=== PATIENT | female | born 1955 | race Caucasian/White ===

== ENCOUNTER 2021-07-24 19:48 | Emergency (ER) | payer BC ==
[2021-07-24] MEDS ORDERED: NA CHLORIDE 0.9% 500 ML ONE (20:42)
[2021-07-24 20:48] LABS: Absolute Lymphocytes (CBC) 1.6 K/uL (0.7-4.9); Basophils % 0.5 % (0-1.3); Lymphocytes % 15.4 % (15.3-44.8); MPV 8.3 fL (7.6-11.3)
[2021-07-24 20:49] LABS: Protime INR 1.06
[2021-07-24 21:06] LABS: ALT/SGPT 20 U/L (12-78); AST/SGOT 12 U/L (15-37); Albumin 3.3 g/dL (3.4-5.0); Alkaline Phosphatase 86 U/L (45-117); BUN Blood Urea Nitrogen 19 mg/dL (7-18); Bicarbonate 26 mmol/L (21-32); Bilirubin Direct < 0.1 mg/dL (0-0.2); Bilirubin Total 0.3 mg/dL (0.2-1.0); Glucose Level 97 mg/dL (74-106); NT PRO-BNP 97 pg/mL (<125); Potassium 3.3 mmol/L (3.5-5.1); Protein, Total 7.3 g/dL (6.4-8.2); Sodium Level 142 mmol/L (136-145); Troponin (Emerg Dept Use Only) < 0.02 ng/mL (0.0-0.045)
--- NOTE | 2021-07-24 21:32 | RAD REPORT ---
EXAM DESCRIPTION: CTAbdomen Pelvis W Contrast - 07/24/2021 9:21 pm CLINICAL HISTORY: ABD PAIN COMPARISON: No comparisons TECHNIQUE: CT of the abdomen and pelvis was performed. All CT scans are performed using dose optimization technique as appropriate and may include automated exposure control or mA/KV adjustment according to patient size. FINDINGS: Lower chest: Moderate hiatal hernia. Micro nodularity is present in the right lower lobe. Liver: No acute abnormality or suspicious lesions. Biliary: No biliary ductal dilatation. Stomach: No significant focal abnormality. Duodenum: No significant focal abnormality. Pancreas: No significant abnormality. Spleen: No significant abnormality. Adrenal: No suspicious lesions. Kidney/ureter: No hydronephrosis. No renal calculi. Too small to characterize and/or benign appearing renal lesions are noted. Retroperitoneum: No retroperitoneal adenopathy. Vascular: Mild atherosclerosis. No aneurysm. Bowel: Moderate circumferential colonic wall thickening and stranding is present at the splenic flexu re. Diverticulosis without diverticulitis.. Peritoneum: No ascites or free air. Bladder: Grossly unremarkable. Reproductive: No adnexal masses. Bones: No acute fracture. Other: n/a IMPRESSION: Colitis at the splenic flexure. The differential includes infectious and inflammatory et iologies. This is also a common distribution for ischemic colitis. Micronodularity in the right lower lobe may represent mild aspiration pneumonitis. It may be of littl e clinical significance.
--- NOTE | 2021-07-24 22:50 | ER ---
Nurse's Notes [facility] Name: Sarahy Gilliland Age: 66 yrs Sex: Female : 1955 Arrival Date: 07/24/2021 Time: 19:51 Bed 20 Private MD: Diagnosis: Infectious gastroenteritis and colitis, unspecified Presentation: 07/24 20:05 Chief complaint: Patient states: bright red blood that was 'jelled' and mixed with vg1 stool; noticed blood and diarrhea yesterday. Denies NV. States about 20 episodes of diarrhea since last night. Coronavirus screen: Vaccine status: Patient reports receiving the 2nd dose of the covid vaccine. Client denies travel out of the [place] in the last 14 days. Ebola Screen: Patient negative for fever greater than or equal to 101.5 degrees Fahrenheit, and additional compatible Ebola Virus Disease symptoms. Initial Sepsis Screen: Does the patient meet any 2 criteria? HR > 90 bpm. Does the patient have a suspected source of infection?. Risk Assessment: Do you want to hurt yourself or someone else? Patient reports no desire to harm self or others. Onset of symptoms was July 23, 2021. 20:05 Method Of Arrival: Ambulatory vg1 20:05 Acuity: JONI 3 vg1 Triage Assessment: 20:10 General: Appears in no apparent distress. uncomfortable, Behavior is calm, cooperative. vg1 Pain: Complains of pain in suprapubic area Pain currently is 9 out of 10 on a pain scale. Pain began 1 day ago. GI: Abdomen is round obese, Stools are reported to be diarrhea. Reports diarrhea. Historical: - Allergies: 20:08 No Known Allergies; vg1 - Home Meds: 20:08 aspirin 81 mg Oral chew [Active]; metoprolol tartrate 25 mg Oral tab [Active]; Nexium vg1 Oral [Active]; valsartan-hydrochlorothiazide 320-25 mg Oral tab [Active]; ezetimibe-simvastatin Oral [Active]; topiramate Oral [Active]; - PMHx: 20:08 GERD; Hypertension; Myocardial infarction; Sleep Apnea; vg1 - PSHx: 20:08 Appendectomy; Tubal ligation; vg1 20:10 Heart Cath; vg1 - Immunization history:: Client reports receiving the 2nd dose of the Covid vaccine. - Social history:: Smoking status: Patient/guardian denies using tobacco, the patient reports quitting approximately 30 years ago. Screenin/17 00:17 Abuse screen: Denies threats or abuse. Denies injuries from another. Nutritional sm5 screening: No deficits noted. Tuberculosis screening: No symptoms or risk factors identified. Fall Risk None identified. Total Kidd Fall Scale indicates No Risk (0-24 pts). Assessment: 07/24 22:15 General: Appears in no apparent distress. Behavior is calm, cooperative. Neuro: No sm5 deficits noted. Level of Consciousness is awake, alert, Oriented to person, place, time, situation. Cardiovascular: No deficits noted. Capillary refill < 3 seconds Patient's skin is warm and dry. Respiratory: No deficits noted. Airway is patent Trachea midline Respiratory effort is even, unlabored. GI: Abdomen is non-distended, Reports diarrhea, bloody stool. 07/25 00:20 Reassessment: No changes from previously documented assessment. sm5 Vital Signs: 07/24 20:05 BP 100 / 61; Pulse 105; Resp 16; Temp 97.5; Pulse Ox 96% ; Weight 92.08 kg; Height 5 vg1 ft. 6 in. (167.64 cm); Pain 5/10; 21:00 BP 107 / 63; Pulse 90; Resp 20; Pulse Ox 97% ; sm5 22:17 BP 103 / 52; Pulse 77; Resp 15; Pulse Ox 100% ; sm5 23:00 BP 104 / 51; Pulse 79; Resp 18; Pulse Ox 100% on R/A; sm5 07/25 00:00 BP 116 / 50; Pulse 80; Resp 19; Pulse Ox 100% on R/A; sm5 07/24 20:05 Body Mass Index 32.76 (92.08 kg, 167.64 cm) vg1 [place] Coma Score: 07/24 22:17 Eye Response: spontaneous(4). Verbal Response: oriented(5). Motor Response: obeys sm5 commands(6). Total: 15. ED Course: 19:51 Patient arrived in ED. bp1 20:08 Triage completed. vg1 20:10 Arm band placed on. vg1 20:14 Paola Rajan RN is Primary Nurse. sm5 20:16 Antony Steve MD is Attending Physician. sp3 20:42 Basic Metabolic Panel Sent. sm5 20:42 CBC with Diff Sent. sm5 20:42 LFT's Sent. sm5 20:42 Magnesium Sent. sm5 20:42 NT PRO-BNP Sent. sm5 20:42 PT-INR Sent. sm5 20:42 Troponin (emerg Dept Use Only) Sent. sm5 20:42 Basic Metabolic Panel Sent. sm5 20:43 Inserted saline lock: 20 gauge in right antecubital area, using aseptic technique. sm5 Blood collected. 21:23 CT Abd/Pelvis - IV Contrast Only In Process Unspecified. EDMS 07/25 00:18 Patient has correct armband on for positive identification. Bed in low position. Call sm5 light in reach. Side rails up X2. 00:18 No provider procedures requiring assistance completed. IV discontinued, intact, sm5 bleeding controlled, No redness/swelling at site. Pressure dressing applied. Administered Medications: 07/24 20:45 Drug: NS 0.9% 500 ml Route: IV; Rate: bolus; Site: right antecubital; 5 23:00 Drug: Cipro (ciprofloxacin) 400 mg Volume: 200 ml; Route: IVPB; Infused Over: 60 mins; sm5 Site: right forearm; 07/25 00:17 Follow up: Response: No adverse reaction; IV Status: Completed infusion; IV Intake: sm5 200ml 07/24 23:16 CANCELLED (out of stock): Flagyl (metroNIDAZOLE) 500 mg 100 ml IVPB at 200 ml/hr once sm5 over 30 mins 23:20 Drug: Flagyl (metroNIDAZOLE) 500 mg Route: PO; sm5 07/25 00:17 Follow up: Response: No adverse reaction sm5 Intake: 00:17 IV: 200ml; Total: 200ml. sm5 Outcome: 07/24 22:50 Discharge ordered by . sp3 07/25 00:18 Discharged to home ambulatory, with family. sm5 Condition: good Discharge instructions given to patient, family, Instructed on discharge instructions, follow up and referral plans. no drinking with medication, medication usage, Demonstrated understanding of instructions, follow-up care, medications, Prescriptions given X 2. 00:21 Patient left the ED. 5 Signatures: Dispatcher [employer] EDKS Zara Matias, RN RN Calista Elliott Setul, MD MD sp3 Paola Rajan, RN RN sm5
--- NOTE | 2021-07-24 22:50 | EDPHYS ---
Physician Documentation [facility] Name: Sarahy Gilliland Age: 66 yrs Sex: Female : 1955 Arrival Date: 07/24/2021 Time: 19:51 Bed 20 Private MD: ED Physician Antony Steve HPI: 07/24 21:28 This 66 yrs old Female presents to ER via Ambulatory with complaints of Diarrhea, sp3 Bloody Stools. 21:28 66-year-old female with history of hypertension, GERD, prior [place] who presents to the ED sp3 with chief complaint abdominal pain, bloody diarrhea for approximately 36 hours with over 20 episodes. Patient states that her last episode was jellylike with candi blood noted. Patient states that prior to her symptoms starting she has had shrimp and also later that day eggs. All of her symptoms were sudden onset. Patient denies fever, headache, neck pain, chest pain, shortness of breath, extremity pain, decrease in urine output, bleeding from any other sites, travel history, known sick contacts including COVID-19, rash, or any other ROS at this time. Patient had a video consultation with her PCP Dr. Neri who referred her to the ED for evaluation.. Historical: - Allergies: 20:08 No Known Allergies; vg1 - Home Meds: 20:08 aspirin 81 mg Oral chew [Active]; metoprolol tartrate 25 mg Oral tab [Active]; Nexium vg1 Oral [Active]; valsartan-hydrochlorothiazide 320-25 mg Oral tab [Active]; ezetimibe-simvastatin Oral [Active]; topiramate Oral [Active]; - PMHx: 20:08 GERD; Hypertension; Myocardial infarction; Sleep Apnea; vg1 - PSHx: 20:08 Appendectomy; Tubal ligation; vg1 20:10 Heart Cath; vg1 - Immunization history:: Client reports receiving the 2nd dose of the Covid vaccine. - Social history:: Smoking status: Patient/guardian denies using tobacco, the patient reports quitting approximately 30 years ago. ROS: 21:30 Constitutional: Negative for fever, chills, and weight loss, Eyes: Negative for injury, sp3 pain, redness, and discharge, ENT: Negative for injury, pain, and discharge, Neck: Negative for injury, pain, and swelling, Cardiovascular: Negative for chest pain, palpitations, and edema, Respiratory: Negative for shortness of breath, cough, wheezing, and pleuritic chest pain, Back: Negative for injury and pain, MS/Extremity: Negative for injury and deformity, Skin: Negative for injury, rash, and discoloration, Neuro: Negative for headache, weakness, numbness, tingling, and seizure, Psych: Negative for depression, anxiety, suicide ideation, homicidal ideation, and hallucinations, Allergy/Immunology: Negative for hives, rash, and allergies, Endocrine: Negative for neck swelling, polydipsia, polyuria, polyphagia, and marked weight changes. 21:30 All other systems are negative. Exam: 21:30 Constitutional: This is a well developed, well nourished patient who is awake, alert, sp3 and in no acute distress. Head/Face: Normocephalic, atraumatic. Eyes: Pupils equal round and reactive to light, extra-ocular motions intact. Lids and lashes normal. Conjunctiva and sclera are non-icteric and not injected. Cornea within normal limits. Periorbital areas with no swelling, redness, or edema. ENT: Nares patent. No nasal discharge, no septal abnormalities noted. External auditory canals are clear. Oropharynx with no redness, swelling, or masses, exudates, or evidence of obstruction, uvula midline. Mucous membranes moist. Neck: Trachea midline, no thyromegaly or masses palpated, and no cervical lymphadenopathy. Supple, full range of motion without nuchal rigidity, or vertebral point tenderness. No Meningismus. Chest/axilla: Normal chest wall appearance and motion. Nontender with no deformity. No lesions are appreciated. Cardiovascular: Regular rate and rhythm with a normal S1 and S2. No gallops, murmurs, or rubs. Normal PMI, no JVD. No pulse deficits. Respiratory: Lungs have equal breath sounds bilaterally, clear to auscultation and percussion. No rales, rhonchi or wheezes noted. No increased work of breathing, no retractions or nasal flaring. Back: No spinal tenderness. No costovertebral tenderness. Full range of motion. Skin: Warm, dry with normal turgor. Normal color with no rashes, no lesions, and no evidence of cellulitis. MS/ Extremity: Pulses equal, no cyanosis. Neurovascular intact. Full, normal range of motion. Neuro: Awake and alert, GCS 15, oriented to person, place, time, and situation. Cranial nerves II-XII grossly intact. Motor strength 5/5 in all extremities. Sensory grossly intact. Cerebellar exam normal. Normal gait. Psych: Awake, alert, with orientation to person, place and time. Behavior, mood, and affect are within normal limits. 21:30 Abdomen/GI: Patient has suprapubic pain on palpation without evidence of peritonitis. There is no rebound or guarding. Bowel sounds are hyperactive. No upper abdominal tenderness noted. Due to body habitus, pulsatile mass was not able to be ascertained.. Vital Signs: 20:05 BP 100 / 61; Pulse 105; Resp 16; Temp 97.5; Pulse Ox 96% ; Weight 92.08 kg; Height 5 vg1 ft. 6 in. (167.64 cm); Pain 5/10; 21:00 BP 107 / 63; Pulse 90; Resp 20; Pulse Ox 97% ; sm5 22:17 BP 103 / 52; Pulse 77; Resp 15; Pulse Ox 100% ; sm5 23:00 BP 104 / 51; Pulse 79; Resp 18; Pulse Ox 100% on R/A; sm5 12 00:00 BP 116 / 50; Pulse 80; Resp 19; Pulse Ox 100% on R/A; sm5 07/24 20:05 Body Mass Index 32.76 (92.08 kg, 167.64 cm) vg1 [place] Coma Score: 07/24 22:17 Eye Response: spontaneous(4). Verbal Response: oriented(5). Motor Response: obeys sm5 commands(6). Total: 15. MDM: 20:20 Patient medically screened. sp3 21:31 Data reviewed: vital signs, nurses notes. ED course: 66-year-old female with likely sp3 food related illness causing bloody diarrhea and mild dehydration. Will obtain CT scan of the abdomen, laboratory values and administer IV fluids. Differential diagnosis includes infectious diarrhea, infectious colitis, diverticulitis, other GI bleed, bowel ischemia, or other inflammatory process. Disposition will be based on work-up with possibility of admission. Clinically patient is stable and in no acute distress. . 22:48 ED course: Patient with inflammatory and likely infectious colitis from the splenic sp3 flexure distal. Laboratory values show no significant abnormality. Discussed with Dr. Neri her PCP and we will administer Cipro and Flagyl IV in the ED and discharge patient on 10 days of p.o. medications. Also a low fiber diet and follow-up with Dr. Neri in the office.. 07/24 20:20 Order name: Basic Metabolic Panel [facility] 07/24 20:20 Order name: CBC with Diff; Complete Time: 22:33 [facility] 07/24 22:36 Interpretation: WBC 10.20; RBC 4.90. [facility] 07/24 20:20 Order name: LFT's; Complete Time: 22:33 [facility] 07/24 20:20 Order name: Magnesium; Complete Time: 22:33 [facility] 07/24 20:20 Order name: NT PRO-BNP; Complete Time: 22:33 [facility] 07/24 20:20 Order name: PT-INR; Complete Time: 22:33 [facility] 07/24 20:20 Order name: Troponin (emerg Dept Use Only); Complete Time: 22:33 [facility] 07/24 20:20 Order name: EKG; Complete Time: 20:21 [facility] 07/24 20:20 Order name: CT Abd/Pelvis - IV Contrast Only; Complete Time: 22:33 [facility] 07/24 20:20 Order name: Basic Metabolic Panel; Complete Time: 22:33 [facility] 07/24 20:20 Order name: Cardiac monitoring; Complete Time: 20:42 [facility] 07/24 20:20 Order name: EKG - Nurse/Tech; Complete Time: 20:45 [facility] 07/24 20:20 Order name: IV Saline Lock; Complete Time: 20:42 3 07/24 20:20 Order name: Labs collected and sent; Complete Time: 20:42 [facility] 07/24 20:20 Order name: O2 Per Protocol; Complete Time: 20:42 [facility] 07/24 20:20 Order name: O2 Sat Monitoring; Complete Time: 20:42 [facility] 07/24 20:20 Order name: NPO; Complete Time: 20:42 sp3 Administered Medications: 20:45 Drug: NS 0.9% 500 ml Route: IV; Rate: bolus; Site: right antecubital; 5 23:00 Drug: Cipro (ciprofloxacin) 400 mg Volume: 200 ml; Route: IVPB; Infused Over: 60 mins; sm5 Site: right forearm; 07/25 00:17 Follow up: Response: No adverse reaction; IV Status: Completed infusion; IV Intake: sm5 200ml 07/24 23:16 CANCELLED (out of stock): Flagyl (metroNIDAZOLE) 500 mg 100 ml IVPB at 200 ml/hr once sm5 over 30 mins 23:20 Drug: Flagyl (metroNIDAZOLE) 500 mg Route: PO; sm5 07/25 00:17 Follow up: Response: No adverse reaction sm5 Disposition Summary: 07/24/21 22:50 Discharge Ordered Location: Home sp3 Condition: Stable sp3 Diagnosis - Infectious gastroenteritis and colitis, unspecified sp3 Followup: sp3 - With: Private Physician - When: 2 - 3 days - Reason: Re-evaluation by your physician Discharge Instructions: - Discharge Summary Sheet sp3 - Diarrhea, Adult sp3 Forms: - Medication Reconciliation Form sp3 - Thank You Letter sp3 - Antibiotic Education sp3 - Prescription Opioid Use sp3 Prescriptions: - Cipro 500 mg Oral Tablet - take 1 tablet by ORAL route every 12 hours for 10 days; 20 tablet; Refills: 0, sp3 Product Selection Permitted - Flagyl 500 mg Oral Tablet - take 1 tablet by ORAL route every 8 hours for 10 days; 30 tablet; Refills: 0, sp3 Product Selection Permitted Signatures: Dispatcher [employer] EDMS Zara Matias RN RN vg1 Antony Steve MD MD sp3 Paola Rajan RN RN sm5 Corrections: (The following items were deleted from the chart) 07/24 23:16 22:49 Flagyl (metroNIDAZOLE) 500 mg 100 ml IVPB at 200 ml/hr once over 30 mins ordered. sm5 sp3
[2021-07-24] MEDS ORDERED: metroNIDAZOLE 500 MG TABLET ONE (22:58)
[2021-07-24] MEDS ORDERED: CIPROFLOXACIN 400mg IV 400 MG/200 ML BAG IV ONE (22:58)
[2021-07-25 00:33] VITALS: TEMP 97.5
[2021-07-25 00:36] VITALS: O2SAT 100
[2021-07-25 00:39] VITALS: BP 116/50
--- NOTE | 2021-07-26 17:02 | EKG ---
Test Date: 2021-07-24 Test Time: 20:45:37 Internet Site Designer: JOHN MEASUREMENT RESULTS: Intervals: Rate: 93 ID: [id number] QRSD: 74 QT: 356 QTc: 442 [place]: P: 44 ID: [id number] QRS: 27 T: 64 INTERPRETIVE STATEMENTS: Normal sinus rhythm Cannot rule out Inferior infarct, age undetermined Cannot rule out Anterior infarct, age undetermined Abnormal ECG No previous ECG available for comparison Electronically Signed On 07-26-21 17:00:08 [employer] by Augusto Bates
== END 2021-07-25 00:21 | disposition home or self-care (01) ==
LOC: ER 19:48
DX: K52.9 Noninfective gastroenteritis and colitis, unspecified (principal); I10 Essential (primary) hypertension; K21.9 Gastro-esophageal reflux disease without esophagitis; G47.30 Sleep apnea, unspecified; I25.2 Old myocardial infarction
CPT/HCPCS: 96365; 93005; 85025; 80048; 36415; 83735; 85610; 80076; 84484; 83880; 74177; 99284; Q9967; J7040; J0744

== ENCOUNTER 2022-01-25 15:31 | Inpatient (IN) | payer BC, OTHER ==
[2022-01-25 16:19] LABS: Absolute Lymphocytes (CBC) 1.4 K/uL (0.7-4.9); Hematocrit 43.2 % (36.0-45.0); MCV 80.6 fL (80-100); MPV 8.3 fL (7.6-11.3); RBC Red Blood Cell Count 5.36 M/uL (3.86-4.86)
[2022-01-25 16:22] LABS: Protime INR 0.97
--- NOTE | 2022-01-25 16:40 | RAD REPORT ---
EXAM DESCRIPTION: RAD - Chest Single View - 01/25/2022 4:35 pm CLINICAL HISTORY: CHEST PAIN COMPARISON: CHEST PA AND LAT 2 VIEW dated 10/23/2015; CHEST PA AND LAT 2 VIEW dated 10/19/2015; Abdome n Pelvis W Contrast dated 07/24/2021 FINDINGS: Lines: None. Lungs: No evidence of edema or pneumonia. Pleural: No significant pleural effusions or pneumothorax. Cardiac: The heart size is within normal limits. Bones: No acute fractures. Other: Small hiatal hernia IMPRESSION: No acute cardiopulmonary disease.
[2022-01-25 16:41] LABS: ALT/SGPT 21 U/L (12-78); AST/SGOT 20 U/L (15-37); Albumin 3.4 g/dL (3.4-5.0); Alkaline Phosphatase 93 U/L (45-117); BUN Blood Urea Nitrogen 17 mg/dL (7-18); Bicarbonate 25 mmol/L (21-32); Bilirubin Direct < 0.1 mg/dL (0-0.2); Bilirubin Total 0.5 mg/dL (0.2-1.0); Glomerular Filtration Rate 64 ml/min (=/>90); Glucose Level 99 mg/dL (74-106); Magnesium 1.8 mg/dL (1.8-2.4); NT PRO-BNP 45 pg/mL (<125); Potassium 3.9 mmol/L (3.5-5.1); Sodium Level 139 mmol/L (136-145); Troponin High Sensitivity 3.9 pg/mL (<58.9)
--- NOTE | 2022-01-25 16:51 | EDPHYS ---
Physician Documentation [facility] Name: Sarahy Gilliland Age: 66 yrs Sex: Female : 1955 Arrival Date: 01/25/2022 Time: 15:33 Bed 7 Private MD: Debra Neri C ED Physician Sherry Mandujano HPI: 01/25 16:10 This 66 yrs old Female presents to ER via Wheelchair with complaints of Chest Pain, en Dizziness. 16:10 66 yo F with h/o chiari malformation, CAD, HTN presents to ED with 4d of intermittent en substernal CP radiating to throat and jaw associated with nausea, diaphoresis and lightheadedness. Pain is worse with exertion. Also reports some left sided ataxia when she walks without numbness, tingling weakness, AMS, trouble with speech. CP takes her breath away otherwise no SOB, cough, orthopnea. Historical: - Allergies: 15:42 Plavix; ll1 - PMHx: 15:42 Hypertension; GERD; Myocardial infarction; Sleep Apnea; pre diabetes; ll1 - PSHx: 15:42 Appendectomy; heart cath; tubal ligation; ll1 - Immunization history:: Client reports receiving the 2nd dose of the Covid vaccine. - Social history:: Smoking status: Patient/guardian denies using tobacco. ROS: 16:10 Constitutional: Negative for fever, chills, and weight loss. en 16:10 Constitutional: Negative for body aches, chills, fatigue, fever. 16:10 Eyes: Negative for blurry vision. 16:10 ENT: Negative for tinnitus. 16:10 Cardiovascular: Positive for chest pain. 16:10 Cardiovascular: Negative for edema, orthopnea, palpitations, paroxysmal nocturnal dyspnea. 16:10 Respiratory: Negative for cough, hemoptysis, orthopnea, pleurisy, shortness of breath. 16:10 Abdomen/GI: Positive for nausea and vomiting, Negative for abdominal pain, diarrhea. 16:10 : Negative for urinary symptoms. 16:10 Skin: Positive for diaphoresis. 16:10 Neuro: Positive for dizziness. 16:10 All other systems are negative. Exam: 16:10 Constitutional: This is a well developed, well nourished patient who is awake, alert, en and in no acute distress. 16:10 Constitutional: The patient appears in no acute distress, alert. 16:10 Eyes: Pupils: equal, round, and reactive to light and accomodation, Extraocular movements: intact throughout, Conjunctiva: normal, no exudate, no injection. 16:10 ENT: Mouth: Lips: moist, Oral mucosa: pink and intact, moist, Posterior pharynx: Airway: patent. 16:10 Neck: ROM/movement: is normal. 16:10 Cardiovascular: Rate: normal, Rhythm: regular, Pulses: no pulse deficits are appreciated, Heart sounds: normal, no murmur, no rub, no gallop. 16:10 Respiratory: the patient does not display signs of respiratory distress, Respirations: normal, Breath sounds: are clear throughout, no rales, rhonchi, no stridor, no wheezing. 16:10 Abdomen/GI: Inspection: abdomen appears normal, Bowel sounds: normal, in all quadrants, Palpation: abdomen is soft and non-tender, in all quadrants. 16:10 Back: CVA tenderness, is absent. 16:10 Skin: 16:10 Neuro: Orientation: appropriate for stated age, to person, place \\T\\ time. Mentation: appropriate for stated age, Cranial nerves: CN II- XII are normal as tested, Gait: is steady, Deep tendon reflexes are 16:10 Psych: Behavior/mood is pleasant, cooperative, Affect is calm. Vital Signs: 15:43 BP 153 / 78; Pulse 69; Resp 18; Temp 97.8; Pulse Ox 100% on R/A; Weight 92.53 kg; ll1 Height 5 ft. 6 in. (167.64 cm); Pain 4/10; 16:44 BP 146 / 65; Pulse 58; Resp 18; Pulse Ox 98% on R/A; greer 15:43 Body Mass Index 32.93 (92.53 kg, 167.64 cm) ll1 MDM: 15:52 Patient medically screened. en 16:10 Differential diagnosis: ACS, TIA, unstable angina. Data reviewed: vital signs, nurses en notes, EKG, radiologic studies, EKG NSR with flat T-waves no STEMI, and as a result, I will. 16:46 ED course: . en 16:48 ED course: reviewed imaging and labs. Will admit for exertional chest pain. Accepted by en Dr Neri. Will consult Cards. 01/25 16:03 Order name: Basic Metabolic Panel; Complete Time: 16:43 01/25 16:03 Order name: CBC with Diff; Complete Time: 16:43 01/25 16:03 Order name: D-Dimer; Complete Time: 16:43 01/25 16:03 Order name: LFT's; Complete Time: 16:43 greer 01/25 16:03 Order name: Magnesium; Complete Time: 16:43 01/25 16:03 Order name: NT PRO-BNP; Complete Time: 16:43 01/25 16:03 Order name: PT-INR; Complete Time: 16:43 01/25 16:03 Order name: Troponin HS; Complete Time: 16:43 greer 01/25 16:03 Order name: XRAY Chest (1 view); Complete Time: 16:43 greer 01/25 16:10 Order name: CT Head Brain wo Cont; Complete Time: 17:12 en 01/25 16:39 Order name: COVID-19 SARS RT PCR (Document "Date of Onset" if Symptomatic) 01/25 16:51 Order name: COVID-19 SARS RT PCR (Document "Date of Onset" if Symptomatic) 01/25 15:57 Order name: EKG; Complete Time: 15:57 01/25 15:57 Order name: EKG - Nurse/Tech; Complete Time: 15:57 01/25 16:03 Order name: Cardiac monitoring; Complete Time: 16:08 greer 01/25 16:03 Order name: IV Saline Lock; Complete Time: 16:08 greer 01/25 16:03 Order name: Labs collected and sent; Complete Time: 16:08 greer 01/25 16:03 Order name: O2 Per Protocol; Complete Time: 16:08 greer 01/25 16:03 Order name: O2 Sat Monitoring; Complete Time: 16:08 greer Administered Medications: 16:54 Drug: Zofran (Ondansetron) 4 mg Route: IVP; Site: left antecubital; jg9 16:55 Follow up: Response: No adverse reaction jg9 18:25 Drug: Tylenol 650 mg Route: PO; ss 18:26 Follow up: Response: No adverse reaction ss Disposition Summary: 01/25/22 16:50 Hospitalization Ordered Provider: Debra Neri Location: Telemetry/MedSurg (Inpatient) en Condition: Stable en Problem: new en Symptoms: are unchanged en Bed/Room Type: Standard en Hospitalization Status: Observation(01/25/22 17:13) en Room Assignment: 220(01/25/22 18:00) dw Diagnosis - Exertional chest pain en Forms: - Medication Reconciliation Form en - SBAR form en Addendum: 02/01/2022 18:09 Co-signature as Attending Physician, Sherry toledo a2 Signatures: Dispatcher [employer] [facility] Kary Nunez RN Samia Simons RN RN ss Alzahri, Mohammad, MD MD ma2 Khanh No RN RN ll1 Gina Orellana RN RN jg9 Genet Mendez RN RN Swati Mast PA PA en Corrections: (The following items were deleted from the chart) 01/25 16:15 16:00 Abdomen Pelvis W Con+CT.RAD.BRZ ordered. [facility] 17:13 16:50 Inpatient Admission en en 18:00 16:50 en dw
--- NOTE | 2022-01-25 16:51 | ER ---
Nurse's Notes [facility] Name: Sarahy Gilliland Age: 66 yrs Sex: Female : 1955 Arrival Date: 01/25/2022 Time: 15:33 Bed 7 Private MD: Debra Neri C Diagnosis: Exertional chest pain Presentation: 01/25 15:43 Chief complaint: Patient states: Dizziness and nausea started Wednesday. CP on ll1 . Still feels tired, weak, dizzy with NOYOLA. "Tight to breathe" off/on. No known fever. Home covid test negative. Coronavirus screen: Vaccine status: Patient reports receiving the 2nd dose of the covid vaccine. Client denies travel out of the [place] in the last 14 days. difficulty breathing, fatigue, headache, nausea, shortness of breath, vomiting. Client presents with at least one sign or symptom that may indicate coronavirus-19. Standard/surgical mask placed on the client. Ebola Screen: Patient denies travel to an Ebola-affected area in the 21 days before illness onset. Initial Sepsis Screen: Does the patient meet any 2 criteria? No. Patient's initial sepsis screen is negative. Does the patient have a suspected source of infection? No. Patient's initial sepsis screen is negative. Risk Assessment: Do you want to hurt yourself or someone else? Patient reports no desire to harm self or others. Onset of symptoms was January 21, 2022. 15:43 Method Of Arrival: Wheelchair ll1 15:43 Acuity: JONI 3 ll1 Triage Assessment: 15:46 General: Appears uncomfortable, ill, Behavior is cooperative, appropriate for age. ll1 Pain: Complains of pain in head Pain currently is 4 out of 10 on a pain scale. Quality of pain is described as aching. Neuro: Reports dizziness, headache weakness. Cardiovascular: Reports chest pain, fatigue, lightheadedness, nausea, shortness of breath. Respiratory: Reports shortness of breath labored breathing. GI: Reports nausea, vomiting. Historical: - Allergies: 15:42 Plavix; ll1 - PMHx: 15:42 Hypertension; GERD; Myocardial infarction; Sleep Apnea; pre diabetes; ll1 - PSHx: 15:42 Appendectomy; heart cath; tubal ligation; ll1 - Immunization history:: Client reports receiving the 2nd dose of the Covid vaccine. - Social history:: Smoking status: Patient/guardian denies using tobacco. Screenin:43 Abuse screen: Denies threats or abuse. Denies injuries from another. Nutritional noyola screening: No deficits noted. Tuberculosis screening: No symptoms or risk factors identified. Fall Risk None identified. Assessment: 15:43 Pain: Complains of pain in chest Pain does not radiate. Pain began gradually. Neuro: noyola Level of Consciousness is awake, alert, obeys commands, Oriented to person, place, time, situation, Reports dizziness, weakness. Cardiovascular: Reports chest pain, lightheadedness. Vital Signs: 15:43 BP 153 / 78; Pulse 69; Resp 18; Temp 97.8; Pulse Ox 100% on R/A; Weight 92.53 kg; ll1 Height 5 ft. 6 in. (167.64 cm); Pain 4/10; 16:44 BP 146 / 65; Pulse 58; Resp 18; Pulse Ox 98% on R/A; noyola 15:43 Body Mass Index 32.93 (92.53 kg, 167.64 cm) ll1 ED Course: 15:33 Patient arrived in ED. mr 15:33 Debra Neri MD is Private Physician. mr 15:39 Swati Minaya PA is PHCP. en 15:39 Sherry Mandujano MD is Attending Physician. en 15:42 Arm band placed on Patient placed in an exam room, on a stretcher. ll1 15:43 Genet Mendez, RN is Primary Nurse. noyola 15:43 Patient has correct armband on for positive identification. Bed in low position. noyola community health nurse supervisor on. Pulse ox on. NIBP on. 15:43 No provider procedures requiring assistance completed. Patient maintains SpO2 noyola saturation greater than 95% on room air. 15:46 Triage completed. ll1 16:12 Inserted saline lock: 20 gauge in left forearm, using aseptic technique. noyola 16:37 XRAY Chest (1 view) In Process Unspecified. EDMS 16:49 Debra Neri MD is Hospitalizing Provider. en 16:59 CT Head Brain wo Cont In Process Unspecified. EDMS 18:54 Patient admitted, IV remains in place. noyola Administered Medications: 16:54 Drug: Zofran (Ondansetron) 4 mg Route: IVP; Site: left antecubital; j9 16:55 Follow up: Response: No adverse reaction 9 18:25 Drug: Tylenol 650 mg Route: PO; ss 18:26 Follow up: Response: No adverse reaction Medication: 15:43 VIS not applicable for this client. noyola Outcome: 16:50 Decision to Hospitalize by Provider. en 18:54 Admitted to Med/surg accompanied by tech, room 220. noyola 18:54 Condition: good 18:54 Instructed on the need for admit. 18:55 Patient left the ED. noyola Signatures: Dispatcher [employer] EDNV DonnieAnjali Shelby, RN Khanh Orozco RN RN Gina Blanc RN RN [id number] Genet Mendez RN RN ha [place]kirk, Elizabeth, PA PA en
[2022-01-25] MEDS ORDERED: ONDANSETRON 4 MG/2 ML VIAL ONE (16:56)
--- NOTE | 2022-01-25 17:07 | RAD REPORT ---
EXAM DESCRIPTION: CT - Head Brain Wo Cont - 01/25/2022 4:58 pm CLINICAL HISTORY: Ataxia, nontraumatic, stroke excluded COMPARISON: Head Brain Wo Cont dated 02/12/2017 TECHNIQUE: All CT scans are performed using dose optimization technique as appropriate and may inclu de automated exposure control or mA/KV adjustment according to patient size. FINDINGS: No intracranial hemorrhage, hydrocephalus or extra-axial fluid collection.No areas of brai n edema or evidence of midline shift. Low-lying cerebellar tonsils. The paranasal sinuses and mastoids are clear. The calvarium is intact. IMPRESSION: No acute intracranial abnormality.
[2022-01-25] MEDS ORDERED: ACETAMINOPHEN 500 MG TAB PO PRN (18:12)
[2022-01-25] MEDS ORDERED: ACETAMINOPHEN 325 MG TABLET ONE (18:33)
[2022-01-25] MEDS: METOPROLOL TAR 25 MG TAB PO SCH (21:00)
[2022-01-25] MEDS ORDERED: TOPIRAMATE 25 MG TAB PO SCH (21:00)
[2022-01-25] MEDS: ONDANSETRON 4 MG/2 ML VIAL IV PRN (21:28)
[2022-01-25] MEDS: EZETIMIBE 10 MG TAB PO SCH (21:30)
[2022-01-25 21:33] VITALS: BMI 32.9
[2022-01-25] MEDS: ENOXAPARIN 40 MG/0.4 ML SQ SCH (21:46)
[2022-01-25] MEDS: ATORVASTATIN 40 MG TAB PO SCH (21:47)
[2022-01-26 03:49] LABS: Absolute Lymphocytes (CBC) 1.8 K/uL (0.7-4.9); Hematocrit 40.6 % (36.0-45.0); Lymphocytes % 19.8 % (15.3-44.8); MCV 79.9 fL (80-100); MPV 8.1 fL (7.6-11.3); RBC Red Blood Cell Count 5.08 M/uL (3.86-4.86)
[2022-01-26 04:25] LABS: Potassium 3.8 mmol/L (3.5-5.1)
[2022-01-26] MEDS: PANTOPRAZOLE 40MG TABLET PO SCH (06:28)
[2022-01-26] MEDS: METOPROLOL TAR 25 MG TAB PO SCH ×2 (08:23→20:20)
[2022-01-26] MEDS: ASPIRIN EC 81 MG TAB PO SCH (08:24)
[2022-01-26] MEDS: VALSARTAN 160 MG TAB PO SCH (08:24)
[2022-01-26] MEDS ORDERED: VALSARTAN 160 MG TAB PO SCH (09:00)
[2022-01-26] MEDS ORDERED: hydroCHLOROthiazide 25 MG TAB PO SCH (09:00)
--- NOTE | 2022-01-26 09:50 | RAD REPORT ---
EXAM DESCRIPTION: MRI - Brain W/Wo Cont - 01/26/2022 9:37 am CLINICAL HISTORY: R/O STROKE, ataxia, dizziness COMPARISON: MRA Head Wo Cont dated 01/26/2022; Head Brain Wo Cont dated 01/25/2022; MRA Neck W/Wo Cont dated 01/26/2022 TECHNIQUE: Sagittal and axial T1-weighted images were obtained. Axial PD/heavily T2-weighted and T2- FLAIR images were obtained along with axial DWI/ADC mapping sequences. Coronal heavily T2 weighted s equence obtained. Axial and coronal post-contrast T1-weighted images were also obtained. A 20 ml Mul tihance contrast following utilized. FINDINGS: No intracranial hemorrhage, mass or acute infarction. There is no edema or shift of midlin e structures. No extra-axial fluid collections. Orellana-matter/white matter junction is preserved. Sign al voids are seen as a normal finding in the major intracranial vessels. No significant atrophy santana es are present. The ventricles are normal in appearance. A punctate focus of nonenhancing T2 signal a bnormality is seen in the posterior right frontal lobe. This is most likely a focus of chronic ischem ic change. Post-contrast images show normal enhancement. No dural thickening. Mastoid air cells and paranasal sinuses are clear. Patient has minimal tonsillar ectopia not believed to be clinically significant. IMPRESSION: No acute or subacute infarction changes. No acute intracranial finding.
--- NOTE | 2022-01-26 10:07 | RAD REPORT ---
EXAM DESCRIPTION: MRI - MRA Head Wo Cont - 01/26/2022 9:37 am CLINICAL HISTORY: Dizziness, weakness, stroke-like symptoms COMPARISON: MRI brain same date, CT head January 25 TECHNIQUE: Axial and coronal 3D [id number] image acquisition was performed. 3D rotational images were generated with source and reconstruction images reviewed. Horizontal and vertical axis rotation al views generated using MIP protocol. FINDINGS: No aneurysm or vascular malformation identified. No named branch occlusion, vasculitis or other significant vascular finding identifiable. No basilar abnormality seen. The left posterior cere bral artery P1 segment is absent. A large posterior communicating artery on the left supplies the lef t posterior cerebral artery. This is a normal anatomic variant. Anterior communicating artery is pres ent. Left anterior cerebral artery A1 segment is small in size. This is also believed to be anatomic variation rather than an asymmetric atherosclerotic process. Distal portions of each internal carotid artery show no significant findings. IMPRESSION: MRA head examination shows no branch occlusion, significant atherosclerotic change or ot her significant finding.
--- NOTE | 2022-01-26 10:09 | RAD REPORT ---
EXAM DESCRIPTION: MRI - MRA Neck W/Wo Cont - 01/26/2022 9:38 am CLINICAL HISTORY: Weakness, dizziness, stroke-like symptoms COMPARISON: MRI brain same date TECHNIQUE: MR angiography of the cervical vasculature performed. Coronal imaging plane acquisition u tilized. A 20 mL MultiHance contrast volume was utilized. Coronal reformatted images were generated a nd reviewed. Vertical axis 3D rotational projections obtained using maximum intensity projection prot ocol. FINDINGS: Aortic arch is 3 vessel configuration with no origins stenosis. Imaged portions of the sub clavian arteries also unremarkable. No basilar artery origins stenosis. The proximal portions of each vertebral artery are tortuous. The codominant vertebral arteries show no atherosclerotic change, dis section or other acute process. Right common carotid artery is tortuous in the proximal portion. The bilateral common carotid and int ernal carotid arteries show no dissection, stenosis or significant vascular finding. IMPRESSION: MRA neck examination shows no significant or suspicious finding.
--- NOTE | 2022-01-26 11:51 | EKG ---
Test Date: 2022-01-25 Test Time: 15:39:09 Student Services Director: MARTÍNEZ MEASUREMENT RESULTS: Intervals: Rate: 62 [place]: 176 QRSD: 80 QT: 412 QTc: 418 [place]: P: 52 [place]: 176 QRS: 25 T: 100 INTERPRETIVE STATEMENTS: Normal sinus rhythm Cannot rule out Anterior infarct, age undetermined Abnormal ECG Compared to ECG 07/24/2021 20:45:37 No significant changes Electronically Signed On 01-26-22 11:50:11 CDT by Augusto Bates
--- NOTE | 2022-01-26 12:14 | CON ---
Date of Consultation: 01/26/2022 Reason For Consultation: Chest pain. History Of Present Illness: Ms. Gilliland is a 66-year-old white woman. She has seen Dr. Sapp in t he past, underwent a left heart catheterization in 2002 with some mild what sounds like distal LAD di sease and had a stress test a couple of years ago that was unremarkable. Comes in with substernal ch est pain radiating to the jaw with some nausea and diaphoresis. Symptoms occurred initially about 3 days ago and then abated. She continues to have some diaphoresis and dizziness upon standing up. Th morning, she had some chest pain with exertion after she walked to the bathroom. Denied any PND, orthopnea, pedal edema, palpitations, or syncope. Denied any fever or chills. Her EKG showed old an terior MN. CT of the head was negative. Chest x-ray was negative. Troponin was unremarkable. The patient continues to have symptoms. Past Medical History: Includes Chiari syndrome, hypertension, gastroesophageal reflux disease, dysli pidemia, CAD status post MN in 2002 with mild coronary artery disease. Allergies: NONE. Review of Systems: Negative. Social History: Negative. Family History: Noncontributory. Medications: At home include valsartan with HCTZ, metoprolol, aspirin, Vytorin, fish oil, and Nexium . Physical Examination: General: Very pleasant lady, in no acute distress now. Vital Signs: Blood pressure is 140/65. HEENT: Negative. Neck: Supple with no bruit. Chest: Clear. Cardiac: Revealed a regular rhythm and rate without any murmurs, gallops, or rubs. Abdomen: Benign. Extremities: Revealed no clubbing, cyanosis, or edema. Diagnostic Data: Listed earlier. Impression And Plan: Symptoms are consistent with unstable angina. There is an echocardiogram pendi ng. She has an MRI as well pending for today. She has seen Dr. Sainz regarding her Chiari syndro me. She has just changed her medication from metoprolol to propranolol. She is also on Celexa. I t hink it would be safest to keep Ms. Gilliland in the hospital for left heart catheterization with selec tive coronary arteriogram to define her coronary anatomy before she goes home. The case was discusse d with Dr. Neri. Her blood pressure and her dyslipidemia are stable. She had Chiari syndrome that i s stable. As listed earlier, she has had a heart catheterization in 2002 with mild coronary artery d isease. We will rule out progression tomorrow. KENNEDY/JOS Voice ID: [id number] Report ID: [id number]
[2022-01-26] MEDS: ONDANSETRON 4 MG/2 ML VIAL IV PRN (13:14)
[2022-01-26] MEDS: ENOXAPARIN 40 MG/0.4 ML SQ SCH (20:19)
[2022-01-26] MEDS: EZETIMIBE 10 MG TAB PO SCH (20:19)
[2022-01-26] MEDS: ATORVASTATIN 40 MG TAB PO SCH (20:19)
[2022-01-27] MEDS: PANTOPRAZOLE 40MG TABLET PO SCH (05:37)
--- NOTE | 2022-01-27 08:50 | ECHO ---
HEIGHT: 5 ft 6 in WEIGHT: 204 lb 0 oz DATE OF STUDY: 01/26/[address]: Augusto Btaes MD 2-DIMENSIONAL: YES M.MODE: YES DOPPLER: YES COLOR FLOW: YES TDS: PORTABLE: YES DEFINITY: BUBBLE STUDY: DIAGNOSIS: CHEST PAIN CARDIAC HISTORY: CATHERIZATION: SURGERY: PROSTHETIC VALVE: PACEMAKER: MEASUREMENTS (cm) DIASTOLIC (NORMALS) SYSTOLIC (NORMALS) IVSd 1.0 (0.6-1.2) LA Diam (1.9-4.0) LVEF 61% LVIDd 4.6 (3.5-5.7) LVIDs 3.1 (2.0-3.5) %FS 33% LVPWd 1.0 (0.6-1.2) Ao Diam 2.7 (2.0-3.7) 2 DIMENSIONAL ASSESSMENT: RIGHT ATRIUM: NORMAL LEFT ATRIUM: NORMAL RIGHT VENTRICLE: NORMAL LEFT VENTRICLE: NORMAL TRICUSPID VALVE: NORMAL MITRAL VALVE: NORMAL PULMONIC VALVE: NORMAL AORTIC VALVE: NORMAL PERICARDIAL EFFUSION: NONE AORTIC ROOT: NORMAL LEFT VENTRICULAR WALL MOTION: NORMAL DOPPLER/COLOR FLOW: MILD AORTIC INSUFFICIENCY COMMENTS: NORMAL LEFT VENTRICULAR EJECTION FRACTION 55-60%. NORMAL WALL MOTION. MILD AORTIC INSUFFICIENCY. TECHNOLOGIST: JOSEFINA ESCOBAR
[2022-01-27] MEDS: ASPIRIN EC 81 MG TAB PO SCH (09:00)
[2022-01-27] MEDS: METOPROLOL TAR 25 MG TAB PO SCH (09:00)
[2022-01-27] MEDS: VALSARTAN 160 MG TAB PO SCH (09:00)
[2022-01-27] MEDS ORDERED: NA CHLORIDE 0.9% 500 ML ONE (10:32)
[2022-01-27] MEDS ORDERED: FENTANYL CITR 100 MCG/2 ML ONE (11:01)
[2022-01-27] MEDS ORDERED: MIDAZOLAM HCL 2 MG/2 ML INJ ONE (11:01)
[2022-01-27] MEDS ORDERED: ATROPINE SULF 1 MG/10 ML SYR IV ONE (11:01)
[2022-01-27] MEDS ORDERED: NA CHLORIDE 0.9% 0 ML ONE (11:01)
[2022-01-27 12:06] VITALS: O2SAT 99
--- NOTE | 2022-01-27 12:06 | OP ---
Date of Procedure: 01/27/2022 Surgeon: Augusto Bates MD Porcelain Enamel Laborer: Ms. Nery Alves. The patient admitted to Dr. Neri on 01/25/2022 with unstable angina. Procedure In Detail: Brought to the cardiac cath rn today on 01/27/2022, prepped and draped in the routine sterile fashion. Given Versed and fentanyl for sedation. A 6-Greek sheath introduced in the right common femoral artery successfully using the Seldinger technique and 10 cc of Xylocaine. Common femo ral artery angiogram was normal. Angio-Seal was used to close the case. Roberth catheter left and r ight were used to cannulate the left main and right main respectively. She had a normal RCA. The le ft main was normal. Circumflex was small, normal, nondominant. LAD was normal proximally. Distally , she has some diffuse plaquing, but no focal stenosis. The patient tolerated the procedure well. T here were no complications. Blood Loss: 5 mL. Postoperative Diagnosis: Minimal coronary artery disease. Plan: Plan is for medical therapy. The patient can go home today after 2 hours of bedrest. She jose l follow up with me and Dr. Neri in the near future. KENNEDY/JOS Voice ID: [id number] Report ID: [id number]
--- NOTE | 2022-01-27 13:03 | HP ---
Date of Admission: 01/26/2022 Chief Complaint: Dizziness, nausea, chest pain. History Of Present Illness: Ms. Gilliland is a 66-year-old very pleasant female patient, who has histo ry of coronary artery disease which never required any intervention, diagnosed in 2002 with some mild disease of distal LAD. 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 Sapp regularly. She had negative stress t est about 2 years ago with her rhythmic gymnastics coach. She was doing fine in her normal usual state of health until this past week on Wednesday. She started to have some dizziness, nausea while she was at work. Next day, she started to have some feeling of chest pain associated with some tightness feeling in her throat and she noted that she had some sweating and short of breath when all the symptoms happene d while she was not doing any activity. Yesterday when she got up just to walk, she felt dizzy, naus eated, short of breath and sweaty and had some chest pain and this was while she was trying to get up to go to the bathroom. She has history of headache and lately her headache medication has been [place] ged because Topamax that she was taking was causing some eye symptoms. She sees Dr. Sainz, neurol ogist for her chronic headache problem. With all these other symptoms, she came into emergency room yesterday and after she was evaluated, she was admitted to the hospital. Allergies: NO KNOWN ALLERGIES. Medications: She takes aspirin 81 mg daily, Nexium 20 mg daily, simvastatin/Zetia 40/10 mg daily, va lsartan/HCTZ 320/25 one tablet daily, Claritin 10 mg daily, metoprolol tartrate 25 mg she takes half a tablet daily, sumatriptan as needed for headache, and some new headache medication recently prescri bed by Dr. Sainz. Review of Systems: Cardiovascular: As mentioned above. SNOWBLOWER MECHANIC: As mentioned above. All other systems reviewed and negative. Past Medical History: Significant for migraine, Arnold-Chiari malformation, impaired fasting glucose , hypertension, hyperlipidemia, gastroesophageal reflux disease, diverticulosis, leukocytosis. Past Surgical History: Tonsillectomy, appendectomy, pilonidal cyst surgery, tubal ligation, D and C, ankle surgery for fracture of left ankle. Family History: Father had coronary artery disease, brother with stroke and coronary artery disease. Social History: Negative for smoking, alcohol use. Occasional use of glass of wine. Immunization History: Her COVID-19 vaccine first dose on October 09, 2020, second dose November 06, 2020, and third dose 06/13/2021. Physical Examination: Vital Signs: Temperature 98, pulse 71, respiratory rate 15, blood pressure 112/52, oxygen saturation 98%. Height 5 feet 6 inches, weight 204 pounds. General: Awake, alert, oriented, not in distress. HEENT: Head atraumatic, normocephalic. Conjunctivae nonerythematous. Sclerae white. Mouth, no thr ush or edema noted. Ears/Nose, no mass, lesion, discharge noted. Neck: Supple. No JVD, lymph nodes, bruit, thyromegaly noted. Lungs: Bilateral good equal air entry. Clear to auscultation. No rhonchi. No rales. Heart: Normal heart sounds, no murmur or gallop. Abdomen: Soft, bowel sounds normal. No guarding, rigidity, tenderness, mass, hepatosplenomegaly, dis tention, or bruit noted. Extremities: No leg edema. No calf tenderness. Skin: No rash, ulcer, cellulitis. Lymphatics: No lymph node enlargement in neck, supraclavicular, infraclavicular region. Neuro: No focal neurological deficit. Chest: Unremarkable. External Genitalia: Deferred. Rectal: Deferred. Laboratory Data: Yesterday; white count 8.7, hemoglobin 14.1, platelets 237. Today; white count 9.1 , hemoglobin 13.5, platelets 277. Yesterday; sodium 139, potassium 3.9, chloride 105, bicarb 25, BUN 17, creatinine 0.98, glucose 99. Liver function tests unremarkable. Troponin first set 3.9, second set 5.3, and third site 5.8. Triglyceride 166, total cholesterol 123, LDL 50, HDL 40. COVID-19 ahmet t negative. Chest x-ray, no acute cardiopulmonary changes. CAT scan of the brain, no acute intracra nial changes. Impression: 1.Coronary artery disease with angina. 2.Migraine headache. 3.Hypertension. 4.Hyperlipidemia. 5.Impaired fasting glucose. 6.Gastroesophageal reflux disease. 7.Diverticulosis. Plan: We will go ahead and admit the patient to hospital for further evaluation and management of th is problem. The patient is appropriate for inpatient and is expected to spend 2 midnights in [facility]. Cardiology consultation was requested and I did discuss details with Dr. Bates. We will get ec ho with Doppler today. We will also get MRI of the brain per stroke protocol to rule out any underly ing stroke type of problem. The patient does have a history of coronary artery disease and she has n ot had any cardiac cath done in the almost last 20 years or so and with her current presenting sympto ms, I did talk to Dr. Bates who is planning to do cardiac cath on her tomorrow. Details and plan o f treatment discussed with the patient. I will see her in the morning for followup. We will continu e her aspirin and Lovenox per order. CLINT/MODL Voice ID: [id number]
[2022-01-27 16:15] VITALS: TEMP 98.6
[2022-01-27 17:57] VITALS: BP 116/64
--- NOTE | 2022-01-28 06:33 | DS ---
Date of Discharge: 01/27/2022 Disposition: Discharged to go home. Physical Examination: HEENT: Unremarkable. Lungs: Clear to auscultation. Heart: Heart sounds normal. Abdomen: Soft, bowel sounds normal. No guarding, rigidity, tenderness, or distention. Extremities: No leg edema. Discharge Medications And Instructions: 1.Continue all prior home medications. 2.Follow up at my office next week. Final Diagnoses: 1.Angina with coronary artery disease. 2.Dizziness. 3.Hypertension. 4.Hyperlipidemia. 5.Impaired fasting glucose. 6.Gastroesophageal reflux disease. 7.Diverticulosis. Hospital Course: This is a 66-year-old female patient who was admitted to the hospital after she pre sented to emergency room with dizziness, nausea and chest pain with day-to-day activity. Please see dictated H and P for more information. After patient was evaluated in the emergency room, she was ad mitted to the hospital. Her MS was ruled out by getting serial cardiac enzymes. Cardiology consulta tion was requested from Dr. Bates. Her chest x-ray was unremarkable. CAT scan of the head was neg ative, which was done in the emergency room. MRI of the brain was done per stroke protocol, which ca me back negative for any acute findings. No evidence of stroke. No evidence of cerebral aneurysm or any significant stenotic lesion intracranially or in the carotid region. Dr. Bates did a cardiac cath on her today and found some known significant plaquing in her coronary arteries, did not require any intervention at all and the patient was discharged to go home in stable condition with recommendation of medical management. I will see her at office n ext week for followup. CLINT/MODL Voice ID: [id number] Report ID: [id number]
== END 2022-01-27 18:20 | disposition home or self-care (01) | DRG 287 ==
LOC: ER 15:31 → ERHOLD 17:06 → 2ND 18:20 → OBSVTOIN 01-26 07:52 → 4TH 01-26 19:30
PROVIDERS: ADMIT Internal Medicine; ATTEND Internal Medicine
PROC: B2011ZZ Plain Radiography of Multiple Coronary Arteries using Low Osmolar Contrast (ICD-10-PCS; principal; 2022-01-27)
PROC: 4A023N7 Measurement of Cardiac Sampling and Pressure, Left Heart, Percutaneous Approach (ICD-10-PCS; 2022-01-27)
DX: I25.119 Atherosclerotic heart disease of native coronary artery with unspecified angina pectoris (principal); I10 Essential (primary) hypertension; K21.9 Gastro-esophageal reflux disease without esophagitis; E78.5 Hyperlipidemia, unspecified; G43.909 Migraine, unspecified, not intractable, without status migrainosus; R42 Dizziness and giddiness; K57.90 Diverticulosis of intestine, part unspecified, without perforation or abscess without bleeding; Q07.00 Arnold-Chiari syndrome without spina bifida or hydrocephalus; R73.01 Impaired fasting glucose; I25.2 Old myocardial infarction; Z20.822 Contact with and (suspected) exposure to COVID-19
CPT/HCPCS: 36415; 70450; 70544; 70549; 70553; 71045; 80048; 80061; 80076; 83735; 83880; 84484; 85025; 85379; 85610; 93005; 93306; 93458; 96374; 99285; A9577; C1760; C1893; G0269; G0378; J0583; J1650; J2250; J2405; J3010; J7040; Q9966; U0003

== ENCOUNTER 2022-03-16 07:54 | Emergency (ER) | payer BC, OTHER ==
--- NOTE | 2022-03-16 08:42 | RAD REPORT ---
EXAM DESCRIPTION: RAD - Chest Single View - 03/16/2022 8:31 am CLINICAL HISTORY: COVID +, sob COMPARISON: Portable 02/04/2022 TECHNIQUE: AP portable chest image was obtained 03/16/2022 8:31 am . FINDINGS: Lung volumes are low. No focal infiltrative process seen. Interstitial pattern is not outs brii of range of normal. Mild viral infiltrate or mild interstitial edema can be masked by the under p enetrated film technique and baseline interstitial pattern. Heart and vasculature are normal. No measurable pleural effusion and no pneumothorax. No acute bony abnormality seen. No acute aortic findings suspected. IMPRESSION: No acute cardiopulmonary process. No significant change from comparison study.
--- NOTE | 2022-03-16 08:48 | RAD REPORT ---
EXAM DESCRIPTION: CT - Head Brain Wo Cont - 03/16/2022 8:39 am CLINICAL HISTORY: Headache, new or worsening COMPARISON: Head Brain Wo Cont dated 01/25/2022; Brain W/Wo Cont dated 01/26/2022 TECHNIQUE: Axial 5 mm thick images of the head were obtained without IV contrast. All CT scans are performed using dose optimization technique as appropriate and may include automated exposure control or mA/KV adjustment according to patient size. FINDINGS: No intracranial hemorrhage, mass, edema or shift of mid-line structures. No acute infarcti on changes seen. No abnormal extra-axial fluid collections. Ventricles are normal. Tonsillar ectopia is again noted. This is best visualized on the January 2022 MRI study. Severity of patient's tonsillar e ctopia is usually not symptomatic but correlation can be made with any pattern of sub occipital heada zheng. Mastoid air cells and visualized portions of the paranasal sinuses are clear. No acute bony findings. Patient has normal variant hyperostosis frontalis interna. IMPRESSION: Negative non-contrast CT head examination for acute finding. Above detailed findings are unchanged from the January 2022 imaging.
[2022-03-16] MEDS ORDERED: dexAMETHasone 10 MG/ML VIAL ONE (09:24)
[2022-03-16] MEDS ORDERED: MORPHINE 4 MG/ML SYR ONE (09:24)
[2022-03-16] MEDS ORDERED: NA CHLORIDE 0.9% 1,000 ML ONE (09:24)
[2022-03-16] MEDS ORDERED: ONDANSETRON 4 MG/2 ML VIAL ONE (09:24)
[2022-03-16 09:27] LABS: Absolute Lymphocytes (CBC) 0.9 K/uL (0.7-4.9); Hematocrit 32.4 % (36.0-45.0); MCV 78.5 fL (80-100); MPV 7.8 fL (7.6-11.3); RBC Red Blood Cell Count 4.13 M/uL (3.86-4.86)
[2022-03-16 10:21] LABS: C-Reactive Protein 57.8 mg/L (<3.00); Ferritin 54.1 ng/mL (8-388); Potassium 3.3 mmol/L (3.5-5.1)
[2022-03-16 10:51] LABS: Protime INR 1.04
--- NOTE | 2022-03-16 11:12 | ER ---
Nurse's Notes [facility] Name: Sarahy Gilliland Age: 66 yrs Sex: Female : 1955 Arrival Date: 03/16/2022 Time: 07:58 Bed 14 Private MD: Debra Neri C Diagnosis: SARS-associated coronavirus as the cause of diseases classified elsewhere;Headache Presentation: 03/16 08:09 Chief complaint: Patient states: Tested positive for covid yesterday, reports dyspnea jl7 when laying down, NOYOLA and achy all over. Coronavirus screen: difficulty breathing, headache, muscle pain, Client presents with at least one sign or symptom that may indicate coronavirus-19. Standard/surgical mask placed on the client. Provider contacted for isolation considerations. Client reports previous positive COVID test result. Date of collection: March 15, 2022. Ebola Screen: No symptoms or risks identified at this time. Initial Sepsis Screen:. Risk Assessment: Do you want to hurt yourself or someone else? Patient reports no desire to harm self or others. Onset of symptoms. 08:09 Method Of Arrival: Ambulatory [facility] 08:09 Acuity: JONI 3 jl7 09:41 Initial Sepsis Screen: Does the patient meet any 2 criteria? No. Patient's initial 6 sepsis screen is negative. Does the patient have a suspected source of infection? No. Patient's initial sepsis screen is negative. Triage Assessment: 08:30 General: Appears in no apparent distress. Behavior is calm, cooperative. Pain: 6 Complains of pain in forehead Pain currently is 8 out of 10 on a pain scale. Quality of pain is described as aching. 08:30 Respiratory: Reports shortness of breath at rest on exertion since 2 days ago cough 6 that is non-productive, Onset: The symptoms/episode began/occurred gradually, the patient has mild shortness of breath. Historical: - Allergies: 08:11 Plavix; jl7 - PMHx: 08:11 GERD; Hypertension; Myocardial infarction; Pre Diabetes; Sleep Apnea; jl7 - PSHx: 08:11 Appendectomy; heart cath; tubal ligation; jl7 - Immunization history:: Client reports receiving the 2nd dose of the Covid vaccine. - Social history:: Smoking status: Patient denies any tobacco usage or history of. - Family history:: not pertinent. - Hospitalizations: : No recent hospitalization is reported. Screenin:16 Abuse screen: Denies threats or abuse. Denies injuries from another. Nutritional jh6 screening: No deficits noted. Tuberculosis screening: No symptoms or risk factors identified. Fall Risk None identified. Assessment: 08:45 Respiratory: Airway is patent Trachea midline Respiratory effort is even, unlabored. jh6 08:45 Cardiovascular: Capillary refill < 3 seconds Clubbing of nail beds is absent JVD is jh6 absent Patient's skin is warm and dry. Rhythm is regular. 08:45 Respiratory: Breath sounds are clear. jh6 10:00 Reassessment: No changes from previously documented assessment. Patient and/or family jh6 updated on plan of care and expected duration. Pain level reassessed. 10:00 Pain: Complains of pain in forehead Pain currently is 5 out of 10 on a pain scale. jh6 Quality of pain is described as dull, pressure. 11:10 Reassessment: Patient and/or family updated on plan of care and expected duration. Pain jh6 level reassessed. Pain: Complains of pain in forehead Pain currently is 3 out of 10 on a pain scale. 12:32 Reassessment: Patient and/or family updated on plan of care and expected duration. Pain jh6 level reassessed. no reaction to antibodies, states that she feels better. Vital Signs: 08:09 Pulse 83; Resp 20; Pulse Ox 97% on R/A; Weight 99.79 kg; Height 5 ft. 6 in. (167.64 jl7 cm); Pain 8/10; 08:15 BP 159 / 59; Pulse 70; Resp 20; Temp 98.7; Pulse Ox 97% ; jh6 10:00 BP 144 / 67; Pulse 70; Resp 16; Temp 97.7; Pulse Ox 97% ; Pain 5/10; jh6 11:06 BP 136 / 73; Pulse 74; Resp 16; Temp 97.8(O); Pulse Ox 96% on R/A; Pain 3/10; jh6 12:30 BP 137 / 53; Pulse 70; Resp 17; Pulse Ox 98% ; Pain 0/10; jh6 08:09 Body Mass Index 35.51 (99.79 kg, 167.64 cm) jl7 ED Course: 07:58 Patient arrived in ED. mr 07:58 Debra Neri MD is Private Physician. mr 08:00 Stanislav Watkins MD is Attending Physician. rn 08:11 Triage completed. jl7 08:11 Arm band placed on right wrist. jl7 08:15 Gina Sanchez, RN is Primary Nurse. jh6 08:30 Patient has correct armband on for positive identification. Placed in gown. Bed in low jh6 position. Side rails up X 1. 08:36 CXR XRAY In Process Unspecified. EDMS 08:40 CT Head Brain wo Cont In Process Unspecified. EDMS 09:00 Inserted saline lock: 22 gauge in left forearm, using aseptic technique. Blood jh6 collected. 09:40 No provider procedures requiring assistance completed. jh6 11:11 Debra Neri MD is Referral Physician. rn 12:32 IV discontinued, intact, bleeding controlled, No redness/swelling at site. Pressure jh6 dressing applied. Administered Medications: 09:25 Drug: NS 0.9% 1000 ml Route: IV; Rate: 1000 ml; Site: left forearm; jh6 10:09 Follow up: IV Status: Completed infusion jh6 09:25 Drug: Decadron - Dexamethasone 10 mg Route: IVP; Site: left forearm; jh6 10:09 Follow up: Response: No adverse reaction jh6 09:25 Drug: morphine 4 mg Route: IVP; Infused Over: 4 mins; Site: left forearm; jh6 10:09 Follow up: Response: Pain is decreased jh6 09:35 Drug: Zofran (Ondansetron) 4 mg Route: IVP; Site: left forearm; jh6 10:09 Follow up: Response: No adverse reaction jh6 11:30 Drug: Bebtelovimab 175 mg Route: IV; Rate: calculated rate; Site: left forearm; jh6 Medication: 08:45 VIS not applicable for this client. 6 Outcome: 11:12 Discharge ordered by . rn 12:32 Discharged to home ambulatory. 6 12:32 Condition: good 12:32 Discharge instructions given to patient, Instructed on discharge instructions, Demonstrated understanding of instructions, follow-up care. 12:37 Patient left the ED. 6 Signatures: Dispatcher [employer] EDCO Anjali Fields mr Watkins, Stanislav, MD MD rn Fletcher, Jahala, RN RN jl7 Hastedt, Gina, RN RN jh6
--- NOTE | 2022-03-16 11:13 | EDPHYS ---
Physician Documentation [facility] Name: Sarahy Gilliland Age: 66 yrs Sex: Female : 1955 Arrival Date: 03/16/2022 Time: 07:58 Bed 14 Private MD: Debra Neri C ED Physician Stanislav Watkins HPI: 03/16 08:39 This 66 yrs old Female presents to ER via Ambulatory with complaints of Covid+, rn Breathing Difficulty. 08:39 The patient has shortness of breath at rest, with light activity. Onset: The rn symptoms/episode began/occurred 2 day(s) ago. Duration: The symptoms are intermittent. The patient's shortness of breath is aggravated by exertion, light activity, is alleviated by rest, sitting up. Associated signs and symptoms: Pertinent positives: non-productive cough, Pertinent negatives: fever, hemoptysis. Severity of symptoms: At their worst the symptoms were moderate in the emergency department the symptoms are unchanged. The patient has not experienced similar symptoms in the past. The patient has not recently seen a physician. Pt reports returned from vacation Wednesday with headache and fatigue. Started to have cough and sob, tested herself, COVID+. No chronic lung problems. Non-smoker. NO chest pain. . Historical: - Allergies: 08:11 Plavix; jl7 - PMHx: 08:11 GERD; Hypertension; Myocardial infarction; Pre Diabetes; Sleep Apnea; jl7 - PSHx: 08:11 Appendectomy; heart cath; tubal ligation; jl7 - Immunization history:: Client reports receiving the 2nd dose of the Covid vaccine. - Social history:: Smoking status: Patient denies any tobacco usage or history of. - Family history:: not pertinent. - Hospitalizations: : No recent hospitalization is reported. ROS: 08:39 Constitutional: Negative for fever, chills, and weight loss, Cardiovascular: Negative rn for chest pain, palpitations, and edema, Respiratory: Negative for wheezing, and pleuritic chest pain, Abdomen/GI: Negative for abdominal pain, nausea, vomiting, diarrhea, and constipation, Back: Negative for injury and pain, MS/Extremity: Negative for injury and deformity, Skin: Negative for injury, rash, and discoloration, Neuro: Negative for numbness, tingling, and seizure, + headache Exam: 08:39 Constitutional: This is a well developed, well nourished patient who is awake, alert rn Head/Face: Normocephalic, atraumatic. Cardiovascular: Regular rate and rhythm. No pulse deficits. Respiratory: Mild tachypnea Abdomen/GI: soft, non-tender Back: No spinal tenderness. No costovertebral tenderness. Full range of motion. Skin: Warm, dry with normal turgor. Normal color with no rashes, no lesions, and no evidence of cellulitis. MS/ Extremity: Pulses equal, no cyanosis. Neurovascular intact. Full, normal range of motion. Equal circumference. Neuro: Awake and alert, GCS 15, oriented to person, place, time, and situation. Cranial nerves II-XII grossly intact. Motor strength 5/5 in all extremities. Sensory grossly intact. Cerebellar exam normal. 09:06 ECG was reviewed by the Attending Physician. rn Vital Signs: 08:09 Pulse 83; Resp 20; Pulse Ox 97% on R/A; Weight 99.79 kg; Height 5 ft. 6 in. (167.64 jl7 cm); Pain 8/10; 08:15 BP 159 / 59; Pulse 70; Resp 20; Temp 98.7; Pulse Ox 97% ; jh6 10:00 BP 144 / 67; Pulse 70; Resp 16; Temp 97.7; Pulse Ox 97% ; Pain 5/10; jh6 11:06 BP 136 / 73; Pulse 74; Resp 16; Temp 97.8(O); Pulse Ox 96% on R/A; Pain 3/10; jh6 12:30 BP 137 / 53; Pulse 70; Resp 17; Pulse Ox 98% ; Pain 0/10; jh6 08:09 Body Mass Index 35.51 (99.79 kg, 167.64 cm) jl7 MDM: 08:00 Patient medically screened. rn 11:10 Differential diagnosis: Myocardial Infarction pneumonia, pulmonary edema. Data rn reviewed: vital signs, nurses notes, lab test result(s), radiologic studies, plain films, and as a result, I will discharge patient. Counseling: I had a detailed discussion with the patient and/or guardian regarding: the historical points, exam findings, and any diagnostic results supporting the discharge/admit diagnosis, lab results, radiology results, the need for outpatient follow up, to return to the emergency department if symptoms worsen or persist or if there are any questions or concerns that arise at home. Response to treatment: the patient's symptoms have markedly improved after treatment, and as a result, I will discharge patient. Special discussion: I discussed with the patient/guardian in detail that at this point there is no indication for admission to the hospital. It is understood, however, that if the symptoms persist or worsen the patient needs to return immediately for re-evaluation. Based on the history and exam findings, there is no indication for further emergent testing or inpatient evaluation. I discussed with the patient/guardian the need to see the primary care provider for further evaluation of the symptoms. ED course: CT head neg, CXR clear, COVID + at home, after discussion and consent, patient would like monoclonal antibodies, discussed case with Dr. Neri who agrees with treatment and requests outpt f/u. . 03/16 08:01 Order name: BMP; Complete Time: 10:46 rn 03/16 08:01 Order name: C-Reactive Protein; Complete Time: 10:46 rn 03/16 08:01 Order name: CBC with Diff; Complete Time: 09:44 rn 03/16 08:01 Order name: Ferritin; Complete Time: 10:46 rn 03/16 08:01 Order name: PT-INR; Complete Time: 11:03 rn 03/16 08:01 Order name: Procalcitonin rn 03/16 08:01 Order name: Ptt, Activated; Complete Time: 11:03 rn 03/16 08:01 Order name: Troponin HS; Complete Time: 10:46 rn 03/16 08:01 Order name: CXR XRAY; Complete Time: 08:50 rn 03/16 08:26 Order name: CT Head Brain wo Cont; Complete Time: 08:50 rn 03/16 08:01 Order name: Cardiac monitoring; Complete Time: 08:17 rn 03/16 08:01 Order name: Droplet/Contact Precautions; Complete Time: 08:17 rn 03/16 08:01 Order name: EKG - Nurse/Tech; Complete Time: 08:17 rn 03/16 08:01 Order name: IV Start; Complete Time: 09:36 rn 03/16 08:01 Order name: Labs collected and sent; Complete Time: 09:36 rn 03/16 08:01 Order name: O2 Per Protocol; Complete Time: 08:17 rn 03/16 08:01 Order name: O2 Sat Monitoring; Complete Time: 08:17 rn EC:06 Rate is 63 beats/min. Rhythm is regular. QRS [place] is Normal. MS interval is normal. QRS rn interval is normal. QT interval is normal. No Q waves. No ST changes noted. Clinical impression: NSR w/ Non-specific ST/T Changes. Interpreted by me. Reviewed by me. Administered Medications: 09:25 Drug: NS 0.9% 1000 ml Route: IV; Rate: 1000 ml; Site: left forearm; 6 10:09 Follow up: IV Status: Completed infusion [facility] 09:25 Drug: Decadron - Dexamethasone 10 mg Route: IVP; Site: left forearm; 6 10:09 Follow up: Response: No adverse reaction [facility] 09:25 Drug: morphine 4 mg Route: IVP; Infused Over: 4 mins; Site: left forearm; 6 10:09 Follow up: Response: Pain is decreased [facility] 09:35 Drug: Zofran (Ondansetron) 4 mg Route: IVP; Site: left forearm; [facility] 10:09 Follow up: Response: No adverse reaction [facility] 11:30 Drug: Bebtelovimab 175 mg Route: IV; Rate: calculated rate; Site: left forearm; [facility] Disposition Summary: 03/16/22 11:12 Discharge Ordered Location: Home rn Problem: new rn Symptoms: have improved rn Condition: Stable rn Diagnosis - SARS-associated coronavirus as the cause of diseases classified elsewhere rn - Headache rn Followup: rn - With: Debra Neri MD - When: 1 - 2 days - Reason: Recheck today's complaints, Re-evaluation by your physician Discharge Instructions: - Discharge Summary Sheet rn - General Headache Without Cause rn - COVID-19 rn - 10 Things You Can Do to Manage Your COVID-19 Symptoms at Home - [facility] rn - Viral Illness, Adult rn - Prevent the Spread of COVID-19 if You Are Sick - [facility] rn Forms: - Medication Reconciliation Form rn - Thank You Letter rn - Antibiotic [employer] - Prescription Opioid Use rn - Work release form ll1 Signatures: Dispatcher [employer] Stanislav Moreno MD MD rn Leal, Jahala, RN RN jl7 Gina Sanchez RN RN jh6 Corrections: (The following items were deleted from the chart) 08:43 08:39 Constitutional: Negative for fever, chills, and weight loss, Cardiovascular: rn Negative for chest pain, palpitations, and edema, Respiratory: Negative for wheezing, and pleuritic chest pain, Abdomen/GI: Negative for abdominal pain, nausea, vomiting, diarrhea, and constipation, Back: Negative for injury and pain, MS/Extremity: Negative for injury and deformity, Skin: Negative for injury, rash, and discoloration, Neuro: Negative for headache, weakness, numbness, tingling, and seizure, rn
[2022-03-16] MEDS ORDERED: BEBTELOVIMAB 175 MG/2 ML VIAL IV ONE (11:27)
[2022-03-16 13:21] VITALS: TEMP 97.8
[2022-03-16 13:24] VITALS: BP 137/53; O2SAT 98
--- NOTE | 2022-03-17 10:41 | EKG ---
Test Date: 2022-03-16 Test Time: 09:01:09 Melt Room Operator: TANNER MEASUREMENT RESULTS: Intervals: Rate: 63 NM: 160 QRSD: 80 QT: 398 QTc: 407 [place]: P: 58 NM: 160 QRS: 60 T: 27 INTERPRETIVE STATEMENTS: Normal sinus rhythm Nonspecific T wave abnormality Abnormal ECG Compared to ECG 01/25/2022 15:39:09 T-wave abnormality now present Myocardial infarct finding no longer present Electronically Signed On 03-17-22 10:36:25 CDT by Augusto Bates
== END 2022-03-16 12:37 | disposition home or self-care (01) ==
LOC: ER 07:54
DX: U07.1 COVID-19 (principal); R06.02 Shortness of breath; I10 Essential (primary) hypertension; I25.2 Old myocardial infarction; Z88.8 Allergy status to other drugs, medicaments and biological substances
CPT/HCPCS: 96361; 93005; 85025; 80048; 36415; 85610; 85730; 84484; 82728; 84145; 86140; 70450; 71045; 96375; 96374; 99284; J1100; J7030; J2405